=== PATIENT | male | born 1990 | race Hispanic/Latino ===

== ENCOUNTER 2017-11-29 20:08 | Emergency (ER) | payer OTHER ==
[~2017-11-29] VITALS: Ht 188 cm; Wt 90.7 kg
[2017-11-29 20:22] VITALS: BP 146/83
--- NOTE | 2017-11-29 22:11 | ED GI/GU/ABDOMINAL COMPLAINT ---
History of Present Illness General Chief Complaint: Abdominal Pain/Flank Pain Stated Complaint: ABD PAIN/TOOTH-ACHE Source: patient Exam Limitations: no limitations Vital Signs & Intake/Output Vital Signs & Intake/Output Vital Signs Date Time Temp Pulse Resp B/P B/P Pulse O2 O2 Flow FiO2 Mean Ox Delivery Rate 11/29 2021 97.1 53 14 146/83 98 Room Air ED Intake and Output 11/30 0000 11/29 1200 Intake Total Output Total Balance Patient 200 lb Weight Weight Reported by Patient Measurement Method Allergies Coded Allergies: No Known Allergies (11/29/17) Reconcile Medications Ketorolac Tromethamine 10 MG TABLET 1 TAB PO TID PRN PAIN Ondansetron HCl (Zofran) 4 MG TABLET 1 TAB PO Q6-8P PRN NAUSEA Triage Note: PT PRESENTS TO THE ER C/O ABD PAIN AND TOOTH ACHE. PT STATES THAT HE HAS A HX OF KIDNEY STONES. PT STAES 2 DAYS AGO ABD PAIN STARTED, LAST BM 2 DAYS AGO. RLQ 8/10 PAIN. PT STATES THAT HE CANT EAT AND THAT HE IS NAUSEOUS AND VOMITTING. LEFT SIDE TOP REAR MOLAR PAIN 9/10 PT STATES TOOTH PAIN STARTED THIS AM. Triage Nurses Notes Reviewed? yes Onset: Gradual Duration: constant Timing: recent history Quality/Severity: sharpness, severe Severity Numbers: 7 Location: right lower quadrant Radiation: no radiation Activities at Onset: none HPI: Patient is a 27-year-old male with a past medical history of kidney stones and presents emergent with a three-day history of persistent right lower quadrant and right flank pain which patient has been unable to tolerate anything by mouth Patient is also complaining of top left dental pain however denies any trauma denies any gum swelling Denies any fever chills Denies any testicular pain swelling or urethral discharge (Sky Agustin) Past History Travel History Traveled to [place] past 21 day No Medical History Any Pertinent Medical History? see below for history Renal: KIDNEY STONES Surgical History Surgical History: non-contributory Psychosocial History What is your primary language Frisian Tobacco Use: Quit >30 days ago Family History Hx Contributory? No (Sky Agustin) Review of Systems Review of Systems Constitutional: Reports: no symptoms. EENTM: Reports: see HPI. Respiratory: Reports: no symptoms. Cardiovascular: Reports: no symptoms. GI: Reports: see HPI. Genitourinary: Reports: no symptoms. Musculoskeletal: Reports: no symptoms. Skin: Reports: no symptoms. Neurological/Psychological: Reports: no symptoms. Hematologic/Endocrine: Reports: no symptoms. Immunologic/Allergic: Reports: no symptoms. All Other Systems: Reviewed and Negative (Sky Agustin) Physical Exam Physical Exam General Appearance: no apparent distress, alert, comfortable Head: atraumatic Eyes: Bilateral: normal appearance. Ears, Nose, Throat, Mouth: hearing grossly normal Neck: normal inspection Respiratory: normal breath sounds Cardiovascular: regular rate/rhythm Gastrointestinal: normal bowel sounds, soft, RLQ PAIN Extremities: normal range of motion Neurologic/Psych: no motor/sensory deficits Skin: intact Comments: left upper molars normal inspection of gums no GUM swelling multiple caries noted moderate point tenderness noted Core Measures ACS in differential dx? No Sepsis Present: No Sepsis Focused Exam Completed? No (Sky Agustin) Progress Differential Diagnosis: AAA, AMI, appendicitis, biliary colic, bowel obstruction , colon cancer, cholecystitis, diverticulitis, epididymitis, esophageal varices, gastritis, hepatitis, hernia, hemorrhoids, ischemic bowel, inflamm bowel dis, Hansa-Erickson tear, orchitis, pancreatitis, prostatitis, peptic ulcer, PUD/GERD, perforated viscous, pyelonephritis, SBO, testicular torsion, ureterolithiasis, urinary retention, urethritis, UTI/pyelo Plan of Care: Orders Procedure Date/time Status COMPREHENSIVE METABOLIC PANEL 11/29 2210 Complete CBC WITHOUT DIFFERENTIAL 11/29 2210 Complete CHLAMYDIA-GC DNA PROBE 11/29 2132 Active URINALYSIS 11/29 2132 Complete Laboratory Tests 11/29/17 2220: Anion Gap 12, Estimated GFR > 60, BUN/Creatinine Ratio 5.6 L, Glucose 102 H, Calcium 10.0, Total Bilirubin 0.9, AST 18, ALT 23, Alkaline Phosphatase 68, Total Protein 7.9, Albumin 4.7, Globulin 3.2, Albumin/Globulin Ratio 1.5, CBC w Diff NO MAN DIFF REQ, RBC 5.25, MCV 93.0, MCH 30.7, MCHC 33.0, RDW 12.4, MPV 8.8 , Gran % 85.3 H, Lymphocytes % 8.9 L, Monocytes % 5.6, Eosinophils % 0.1, Basophils % 0.1, Absolute Granulocytes 8.4 H, Absolute Lymphocytes 0.9 L, Absolute Monocytes 0.5, Absolute Eosinophils 0, Absolute Basophils 0 11/29/172129: Urine Color STRAW, Urine Clarity CLEAR, Urine pH 6.0, Ur Specific [place] <= 1.005, Urine Protein NEG, Urine Ketones NEG, Urine Nitrite NEG, Urine Bilirubin NEG, Urine Urobilinogen 0.2, Ur Leukocyte Esterase NEG, Ur Microscopic EXAM NOT REQUIRED, Urine Hemoglobin NEG, Urine Glucose NEG Microbiology 11/29 2129 URINE ROUT: GC DNA Probe - RECD 11/29 2129 URINE ROUT: Chlamydia DNA Probe (JONNA) - RECD On initial examination patient was resting comfortably but said no apparent distress patient was afebrile blood work is unremarkable CT scan unremarkable patient was able tolerate by mouth point discharge patient was strongly advised to follow-up with discharge instruction and plan and he will comply Diagnostic Imaging: Viewed by Me: CT Scan. Radiology Impression: no acute abnormality Initial ED EKG: none Comments: PATIENT: SERVANDO BURNS PRESENT AGE: 27 PATIENT ACCOUNT NO: [id number] : 92 LOCATION: [facility] ORDERING PHYSICIAN: Sky CARTY SERVICE DATE: 11/29/17 EXAM TYPE: CAT - CT ABD & PELVIS W IV CONTRAST EXAMINATION: CT ABDOMEN AND PELVIS WITH CONTRAST CLINICAL INFORMATION: Right lower quadrant pain. Concern for appendicitis. COMPARISON: None. TECHNIQUE: Contiguous axial thin section helical images of the abdomen and pelvis were performed following the administration of 95 mL of intravenous Optiray 320. The data set was reformatted in the coronal and sagittal planes and reviewed on an independent workstation. DLP: 352 mGy-cm. FINDINGS: There is mild dependent atelectasis at the left lung base. The visualized lung bases are otherwise clear. The visualized portions of the heart are unremarkable. The liver is of normal size and attenuation without focal lesions nor intrahepatic biliary ductal dilation. A normal gallbladder is identified. There is no wall thickening or discernible pericholecystic fluid. The spleen, pancreas, adrenal glands are unremarkable. Both kidneys are of normal size and attenuation without nephrolithiasis. There is mild bilateral pelviectasis. Following the administration of IV contrast, prompt symmetric nephrograms are displayed. There is no abdominal free fluid. There is neither mesenteric nor retroperitoneal lymphadenopathy. Normal unopacified loops of small and large bowel are identified. A normal appendix is identified. There is no pelvic free fluid. The urinary bladder is unremarkable. There is neither pelvic nor inguinal lymphadenopathy. Bone windows: Neither sclerotic nor lytic bone lesions are identified. IMPRESSION: No evidence for acute abdominal or pelvic inflammatory or infectious processes. Specifically, a normal appendix is identified. Mild bilateral pelviectasis. DICTATED BY: Joe De Jesus MD DATE/TIME DICTATED:11/29/172238 WAITER/WAITRESS ECONOMY CLASS:[facility] DATE/TIME TRANSCRIBED:11/29/172238 CONFIDENTIAL, DO NOT COPY WITHOUT APPROPRIATE AUTHORIZATION. <Electronically sig (Sky Agustin) Departure Departure Disposition: HOME OR SELF CARE Condition: Stable Clinical Impression Primary Impression: Abdominal pain Secondary Impressions: Pain, dental Referrals: Patient Has No Primary Care Dr (PCP/Family) Additional Instructions: As discussed begin a 48 hour dietary intake of clear liquids and bland diet to rest her bowels, the in the prescription of Toradol for pain and Zofran for nausea. If symptoms still continue in 2 days follow-up with gastroenterology Dr. Moreira. Prescriptions waiting at [facility]. If symptoms worsen return to the emergency room Follow up this week with your established dentist Departure Forms: Customer Survey General Discharge Information Prescriptions: Current Visit Scripts Ketorolac Tromethamine 1 TAB PO TID PRN PAIN #12 TAB Ondansetron HCl (Zofran) 1 TAB PO Q6-8P PRN NAUSEA #10 TAB (Sky Agustin) PA/RHEOSTAT ASSEMBLER Co-Sign Statement Statement: ED Attending supervision documentation- [] I saw and evaluated the patient. I have also reviewed all the pertinent lab results and diagnostic results. I agree with the findings and the plan of care as documented in the PA's/RHEOSTAT ASSEMBLER's documentation. [x] I have reviewed the ED Record and agree with the PA's/RHEOSTAT ASSEMBLER's documentation. [] Additions or exceptions (if any) to the PAs/RHEOSTAT ASSEMBLER's note and plan are summarized below: [] (Urbano BEST,David Ambriz)
[2017-11-29 22:30] LABS: ABSOLUTE BASOPHIL COUNT 0 /CUMM (0.0-0.2); ABSOLUTE EOSINOPHIL COUNT 0 /CUMM (0.0-0.7); ABSOLUTE GRANULOCYTE CT 8.4 /CUMM (1.4-6.5); ABSOLUTE LYMPH COUNT 0.9 /CUMM (1.2-3.4); ABSOLUTE MONOCYTE COUNT 0.5 /CUMM (0.10-0.60); BASOPHIL % 0.1 % (0.0-2.0); EOSINOPHIL % 0.1 % (0-5); GRANULOCYTE % 85.3 % (42.2-75.2); HEMATOCRIT 48.9 % (42-52); MEAN CORPUSCULAR HGB 30.7 PG (27.0-31.0); MEAN PLATELET VOLUME 8.8 FL (7.4-10.4); PLATELET COUNT 243 /CUMM (130-400); RBC DISTRIBUTION WIDTH 12.4 % (11.5-14.5); RED BLOOD CELL CT 5.25 /CUMM (4.70-6.10); WHITE BLOOD CELL COUNT 9.9 /CUMM (4.8-10.8)
--- NOTE | 2017-11-29 22:45 | CT SCAN REPORT ---
EXAMINATION: CT ABDOMEN AND PELVIS WITH CONTRAST CLINICAL INFORMATION: Right lower quadrant pain. Concern for appendicitis. COMPARISON: None. TECHNIQUE: Contiguous axial thin section helical images of the abdomen and pelvis were performed following the administration of 95 mL of intravenous Optiray 320. The data set was reformatted in the coronal and sagittal planes and reviewed on an independent workstation. DLP: 352 mGy-cm. FINDINGS: There is mild dependent atelectasis at the left lung base. The visualized lung bases are otherwise clear. The visualized portions of the heart are unremarkable. The liver is of normal size and attenuation without focal lesions nor intrahepatic biliary ductal dilation. A normal gallbladder is identified. There is no wall thickening or discernible pericholecystic fluid. The spleen, pancreas, adrenal glands are unremarkable. Both kidneys are of normal size and attenuation without nephrolithiasis. There is mild bilateral pelviectasis. Following the administration of IV contrast, prompt symmetric nephrograms are displayed. There is no abdominal free fluid. There is neither mesenteric nor retroperitoneal lymphadenopathy. Normal unopacified loops of small and large bowel are identified. A normal appendix is identified. There is no pelvic free fluid. The urinary bladder is unremarkable. There is neither pelvic nor inguinal lymphadenopathy. Bone windows: Neither sclerotic nor lytic bone lesions are identified. IMPRESSION: No evidence for acute abdominal or pelvic inflammatory or infectious processes. Specifically, a normal appendix is identified. Mild bilateral pelviectasis.
[2017-11-29] MEDS ORDERED: KETOROLAC TROME10 M1 PO (23:34)
[2017-11-29] MEDS ORDERED: ZOFRAN4 M2 PO (23:34)
== END 2017-11-29 23:49 ==
LOC: ERH 20:08
PROVIDERS: Physician Assistant
DX: R10.31 Right lower quadrant pain (principal); K08.89 Other specified disorders of teeth and supporting structures
CPT/HCPCS: 74177; 81003; 87491; 87591; 96361; 96374; 96375; J1885; J2405